=== PATIENT | female | born 1965 | race Caucasian/White ===

== ENCOUNTER → 2021-07-27 14:28 | Outpatient (BNVA) | payer BC, SELFPAY | PROVIDERS: Family Provider Nurse Practitioner Family; PCP Nurse Practitioner Family; Visit Provider Nurse Practitioner Family | DX: R30.9 Painful micturition, unspecified (principal); N39.0 Urinary tract infection, site not specified; B37.9 Candidiasis, unspecified | CPT/HCPCS: 81003; 87077; 87086; 87184 ==